=== PATIENT | male | born 1945 | race Two or more races ===

== ENCOUNTER 2020-05-08 18:55 | Emergency (ER) | payer OTHER ==
[~2020-05-08] VITALS: Ht 165.1 cm; Wt 68.0 kg
[2020-05-08 19:35] VITALS: BP 120/65
[2020-05-08] MEDS ORDERED: NEOMYCIN-BACITRACIN-POLYM UNITDOSE PKG TOP OINT TOP ONE (20:45)
[2020-05-08] MEDS ORDERED: TETANUS-DIPTH-ACEL PERTUSSIS 0.5ML SYR Tdap IM ONE (20:45)
== END 2020-05-08 21:09 | disposition home or self-care (01) ==
LOC: ER 18:55
DX: S61.501A Unspecified open wound of right wrist, initial encounter (principal); S61.511A Laceration without foreign body of right wrist, initial encounter; E78.5 Hyperlipidemia, unspecified; I10 Essential (primary) hypertension; W54.0XXA Bitten by dog, initial encounter; Y93.89 Activity, other specified; Y92.89 Other specified places as the place of occurrence of the external cause; Y99.8 Other external cause status
CPT/HCPCS: 12001; 90471; 90715; J2001